=== PATIENT | female | born 1990 | race Caucasian/White ===

== ENCOUNTER 2020-07-04 09:04 | Outpatient (CLI) | payer OTHER ==
[~2020-07-04] VITALS: Ht 160 cm; Wt 81.8 kg
[2020-07-04] MEDS ORDERED: D5W/LR 1,000 ML IV ONE (12:00)
[2020-07-05] MEDS ORDERED: PRENTAB9 PO (18:48)
--- NOTE | 2020-08-18 13:41 | HPE ---
DATE OF SERVICE: 07/04/2020 HISTORY OF PRESENT ILLNESS: This patient is a 29-year-old 2, para 1, LMP 10/19/19, EDC 07/25/2020, is here at 37 weeks with contractions, every 4 minutes apart, moderate intensity. She is booked for elective primary section because of previous fourth degree tear with abscess formation. RISK FACTORS: She had a fourth degree tear with abscess formations, has gallstones, has anxiety and depression, and had lead exposure. PAST HISTORY: In 2018 at 40 and 2 weeks, spontaneous delivery, fourth degree tear with abscess, 8 pounds, 10 ounces. LABORATORY: O positive, HIV negative, hepatitis negative, RPR negative, rubella immune, varicella immune, Pap normal, urine negative. Gonorrhea and chlamydia are negative. One hour glucose is 102. GBS is negative. PHYSICAL EXAMINATION: She is having contractions 4 minutes apart, moderate in intensity. She is bothered by them. No show or bleeding. Symphysis-fundal height is 38. Vertex presenting. Four quadrant bowel sounds are noted. Category I strip and documented contractions. Cervical exam is 2 cm, soft, posterior, 50% to 60% effaced, -3 stations. Blood pressure is 129/75, respirations 18, pulse 113, temperature 97.3. PLAN: Our plan is to hydrate the patient. She has had nothing to eat or drink for the last 24 hours. Reassess her in two hours time. DARIEN
== END 2020-07-04 13:24 | disposition home or self-care (01) ==
LOC: M LDO 09:04
PROVIDERS: ATTEND Obstetrics & Gynecology
DX: O47.1 False labor at or after 37 completed weeks of gestation (principal); Z3A.37 37 weeks gestation of pregnancy
CPT/HCPCS: 59025; 96360; G0378; G0463

== ENCOUNTER 2020-07-05 18:35 | Inpatient (IN) | payer OTHER ==
[~2020-07-05] VITALS: Ht 160 cm; Wt 84.7 kg
[2020-07-05] MEDS ORDERED: PRENTAB9 PO (18:48)
[2020-07-05 18:50] VITALS: BP 122/82
[2020-07-05 20:20] VITALS: BP 114/59
[2020-07-05] MEDS ORDERED: ceFAZolin SOD 1 GM in D5W MINI-BAG PLUS 50 ML IV ONE (20:45)
[2020-07-05] MEDS ORDERED: AZITHROMYCIN INJ 500 MG, VIAL MATE ADAPTER 1 EACH in D5W 250 ML IV ONE (20:45)
[2020-07-05] MEDS ORDERED: BICITRA 30ML SOLN UDC PO ONE (20:45)
[2020-07-05] MEDS ORDERED: LR 1,000 ML IV SCH (20:45)
[2020-07-05] MEDS ORDERED: LACTATED RINGER'S 1000 ML IV STA (20:45)
[2020-07-05 20:47] LABS: HEMATOCRIT 37.4 % (36.0-47.0); HEMOGLOBIN 13.2 g/dl (12.0-15.5); MEAN CORPUSCULAR HEMOGLOBIN 31.5 pg (27.0-33.0); MEAN CORPUSCULAR HGB CONC 35.3 g/dl (32.0-36.5); MEAN CORPUSCULAR VOLUME 89.3 fl (80.0-96.0); PLATELET COUNT, AUTOMATED 263 10^3/uL (150-450); RED BLOOD COUNT 4.19 10^6/uL (4.00-5.40); WHITE BLOOD COUNT 11.3 10^3/uL (4.0-10.0)
--- NOTE | 2020-07-05 21:03 | HPEPDOC ---
Obstetrical History & Physical General Date of Admission Jul 05, 2020 at 19:43 History of Present Illness Patient is a 29yo at 37.1wks by LMP c/w 9wk US. Past 2hours with worsening of contractions every 4-6min. No LOF. No VB. No headaches or visual changes. +FM. Chief Complaint: Contractions, term Information Provided By: Patient : 2 Term: 1 Care Care: Good Care Dating Final EDC: Jul 25, 2020 Final EDC by: LMP Antepartum Course Height (inches): 63 Pre- weight (lbs.): 155 Admission Weight (lbs.): 182 Change in Weight (lbs.): 27 Past Medical History Past Obstetrical History : Past Obstetrical History: Multigravida Type of Delivery: Spontaneous Vaginal Del. 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 Past Medical History Medical History FI, ED, anxiety/depression, colitis, gallstones Surgical History: Other (colonoscopy, perineal repair x2) Family History Significant Family History: No pertinent family hx Social History Marital Status: Family situation: Spouse/partner home Psychosocial History: Anxiety, Depression * Smoker: non-smoker Alcohol: Denies Drugs: denies Abuse Violence Screening Have you been hit/kicked/slapp: No Have you been sexually assault: No Imunizations Tdap status: current Influenza Status: current Allergies Coded Allergies: No Known Allergies (Unverified , 07/05/20) Medications Scheduled No.137/Iron/Folic Acd ( Vitamin Tablet) 1 Each Tablet, 1 TAB PO DAILY Physical Examination Physical Examination GENERAL: Alert and oriented times three. BREAST: . ABDOMEN: Gravid and non-tender to touch. FETUS: Is vertex (VTX) by sterile vaginal examination (SVE). HEART RATE: Regular rate and rhythm. LUNGS: Clear to auscultation (CTA). EXTREMITIES: No edema. Vital Signs/I&O Vital Signs Date Time Temp Pulse Resp B/P (MAP) Pulse Ox O2 Delivery O2 Flow Rate FiO2 07/05/20 20:20 87 114/59 (77) 07/05/20 18:50 98.2 Laboratory Data 24H LABS Laboratory Tests 2 07/05/20 19:54: Nucleated Red Blood Cells % (auto) 0.0 07/05/20 20:14: Serology Scanned Report Hepatitis B Testing CBC/BMP Laboratory Tests 07/05/20 19:54 Pertinent Laboratoy Data Blood Type: O+ RBC Antibody Screen: Negative HIV: Negative Hepatitis B: Negative Rapid Plasma Reagin: Nonreactive Rubella: Immune Varicella: Immune Chlamydia/Gonorrhea: Negative Group B Streptococcus: Negative Glucose Tolerance Test: 102 Steroid Therapy Steroid Therapy: No Vaginal Examination Dilation: 4 cm Effacement: 80% Station: -3 Presentation: Cephalic presentation Assessment Heart Rate (FHR): 120 Variability: Moderate Accelerations: Present Decelerations: None Tocometer Contractions: Yes Frequency: regular, every 3-7 min. Multi-drug resistant Organism: No history of MDRO Assessment/Plan Assessment Patient is a 29yo at 37.1wks by LMP c/w 9wk US. Admit for labor and plan for PLTCS as patient desires. Pain management per anesthesia. I discussed risks and benefits of vs section with patient including risk of pelvic floor dysfunction and recurrence OASIS. Currently, fetus is reassuring. Plan Admit and orient. Shoder Filler and consent. Diet: NPO, last full meal 1830. Group B Streptococcus (GBS) negative. Labs and intravenous (IV) per unit protocol. Lactated Ringers (LR): Bolus 1000 mL, then at 125 mL/hr. C-S and inform anesthesia. Ancef and azithro prophylaxis. Denia Harmon MD Jul 05, 2020 21:03
[2020-07-05] MEDS ORDERED: METOCLOPRAMIDE INJ 10MG/2ML VIAL (J2765 PER 1) IV PRN ×2 (21:45→23:15)
[2020-07-05] MEDS ORDERED: diphenhydrAMINE 50MG/ML VIAL (J1200) IV PRN (21:45)
[2020-07-05] MEDS ORDERED: NALBUPHINE HCL 10 MG/ML AMP (J2300) IV PRN (21:45)
[2020-07-05] MEDS ORDERED: ONDANSETRON 4MG/2ML VIAL IV PRN ×3 (21:45→23:15)
[2020-07-05] MEDS ORDERED: NALOXONE INJ 0.4MG/1ML VIAL (J2310 PER 1MG) IV PRN ×2 (21:45)
[2020-07-05] MEDS ORDERED: MORPHINE PRES-FREE INJ 10 MG/10 ML VIAL (J2274) As Ordered ONE (21:46)
[2020-07-05] MEDS ORDERED: PHENYLephrine HCL 500 MCG/5 ML (100MCG/ML) SYRINGE (J2370) As Ordered ONE (21:51)
[2020-07-05] MEDS ORDERED: ePHEDrine SULFATE 25 MG/5 ML(5MG/ML) SYRINGE As Ordered ONE (21:51)
[2020-07-05] MEDS ORDERED: ONDANSETRON 4MG/2ML VIAL As Ordered ONE (21:52)
[2020-07-05] MEDS ORDERED: OXYTOCIN INJ 10 UNITS/ML VIAL (J2590) As Ordered ONE (21:52)
[2020-07-05] MEDS ORDERED: SEVOFLURANE INHAL SOLN 250 ML BTL As Ordered ONE (21:52)
[2020-07-05] MEDS ORDERED: KETOROLAC 60MG 2ML VIAL As Ordered ONE (22:00)
[2020-07-05] MEDS ORDERED: fentaNYL 100 MCG/2 ML INJECTION (J3010) As Ordered ONE (22:13)
--- NOTE | 2020-07-05 22:55 | ROOPDOC ---
[facility] Report Of Operation Report of Operation DATE OF PROCEDURE: 07/05/20 PREPROCEDURE DIAGNOSES: 1. Term . 2. H/o 4th degree laceration. 3. Pelvic floor dysfunction. 4. Fecal incontinence POSTPROCEDURE DIAGNOSES: 1. Term . 2. H/o 4th degree laceration. 3. Pelvic floor dysfunction. 4. Fecal incontinence PROCEDURE: PLTCS. SURGEON: Denia Harmon MD PRODUCT SALES REPRESENTATIVE: Christine Fishman MD ANESTHESIA: Spinal. ESTIMATED BLOOD LOSS: Approximately 900 mL. COMPLICATIONS: None. IV Fluids: FINDINGS: Normal uterus, tubes and ovaries. Clear amniotic fluid. Vertex baby boy with no nuchal cord 9/9 with weight of 3770gm 8lb5oz. DESCRIPTION OF PROCEDURE: Patient was brought back to the operating room. The spinal was placed and confirmed to be adequate. She was then laid in a supine position with a slight leftward tilt and draped and prepped in the usual sterile fashion. Confirmation of good anesthesia was performed and time out was done. Pfannensteil incision location was marked approximately 2cm above the pubic bone and approximately 9cm in length. The incision was made with a 12 blade scalpel and then carried through the subcutaneous tissue just barely piercing the midline of the fascia w ith electrocautery. The left side of the fascia was bluntly dissected free from the rectus muscle and elevated with a Candis clamp and then transected with electrocautery. This was repeated on the right side. The superior fascia was grasped with two kochers and the rectus muscle was dissected free from the fascia with electrocautery. The two kochers were then brought to the inferior edges of the fascia to elevate and dissect the superior portion of the pyramidalis muscle from the fascia. The rectus muscle was divided along the midline and the peritoneum was entered bluntly superiorly. Retractors were placed. The uterovesical peritoneum was identified and grasped approximately 4cm superior to the bladder and incised with Metzenbaum scissors. The incision was c arried bilaterally with the scissors and then inferiorly bluntly. The retractor was replaced to include the bladder flap. Uterine incision was then placed with a different 12 blade scalpel in the lower uterine segment transversing approximately 2cm. The serosa and myometrium were gently cut into. The layers were elevated with 2 Allis clamps and then a Candis clamp was used to bluntly spread through the remainder of the uterus to avoid injuring the fetus. Amniotic sac was pierced and was clear. Fetus was in a OA position without a nuchal cord. I placed my hand into the uterus and flexed the head to allow delivery and then the body was delivered without difficulty. Mouth and nose were bulb suction. Cord was clamp x2 and cut and baby was handed to awaiting nurse with the above findings. The placenta was grasped and removed intact and normal. Uterus was not exteriorized and wrapped in a damp lap and the inside was cleared of all clots and debris with a damp lap. The lower uterine incision edges were identified and grasped with T clamps. The uterine incision was closed with #1 Chromic in a running locked fashion. There was bleeding from an extension on the left lateral edge into the uterine artery in which an Pooja stitch was placed with 0 chromic. A second layer was performed with #1 Chromic in a horizontal mattress fashion for imbrication. Good hemostasis was noted. Adnexa and pos terior uterus was palpated. The posterior cul de sac was irrigated and cleared of all clots and debris. Both pericolic gutters were checked and cleared of all clots and debris. The incision was rechecked and found to be hemostatic. The retractors were removed. Three Candis clamps were placed on the peritoneum for elevation and it was closed with 3-0 chromic, which was also used to reapproximate the lower edges of the rectus muscle. The rectus muscle was inspected and found to be hemostatic. The fascia was closed with 0 vicryl in a running unlocked fashion. The fascia was then checked to ensure there was no areas of looseness or defects, which there was not. The subcutaneous layer was irrigated and found to be hemostatic. The epidermis was reapproximated with subcutaneous stictches of 3-0 monocryl and completed with Dermabond. A pressure dressing was then placed. The uterus was then expressed. The count for lap, needles, and instruments was correct times 3. The patient was in stable condition to the PACU. Denia Harmon MD Jul 05, 2020 21:16
[2020-07-05] MEDS: LR 1,000 ML IV SCH (22:59)
[2020-07-05] MEDS ORDERED: OXYTOCIN DRIP 30 UNITS in IV 1 EA IV SCH (22:59)
[2020-07-05] MEDS ORDERED: SIMETHICONE 80 MG CHEW TAB PO PRN (23:00)
[2020-07-05] MEDS ORDERED: HYDROmorphone 2 MG TAB PO PRN (23:00)
[2020-07-05] MEDS ORDERED: MOM 30ML SUSPENSION UDC PO PRN (23:00)
[2020-07-05] MEDS ORDERED: diphenhydrAMINE 25MG CAP PO PRN (23:00)
[2020-07-05] MEDS ORDERED: ANUSOL HC CREAM 30GM TOP PRN (23:00)
[2020-07-05] MEDS ORDERED: CALCIUM CARBONATE 500 MG CHEW U/D PO PRN (23:00)
[2020-07-05] MEDS ORDERED: METHYLERGONOVINE MALEATE 0.2 MG TAB PO PRN (23:00)
[2020-07-05] MEDS ORDERED: RHOGAM 300 MCG (1500 IU) INJ (J2790) IM SCH (23:00)
[2020-07-05] MEDS ORDERED: MEASLES,MUMPS,RUBELLA VACCINE INJ (MMR-II) (90707) SC SCH (23:00)
[2020-07-05] MEDS ORDERED: MEPERIDINE INJ 25 MG/ML VIAL (J2175) IV PRN (23:15)
[2020-07-05] MEDS ORDERED: fentaNYL 100 MCG/2 ML INJECTION (J3010) IV PRN (23:15)
[2020-07-05] MEDS ORDERED: PERCOCET 5MG/325MG TAB PO PRN (23:15)
[2020-07-05] MEDS ORDERED: KETOROLAC 30 MG/ML 1ML VIAL IV PRN (23:15)
[2020-07-06] VITALS (10 sets, daily range): BP systolic 103–115; BP diastolic 58–72
[2020-07-06] MEDS: KETOROLAC 30 MG/ML 1ML VIAL IV SCH ×3 (05:57→17:03)
[2020-07-06] MEDS: LR 1,000 ML IV SCH (06:59)
[2020-07-06] MEDS: PRENATAL VITAMINS CHEWABLE TABLET PO SCH (08:30)
[2020-07-06] MEDS: ACETAMINOPHEN 500 MG TAB PO SCH ×4 (08:30→21:48)
[2020-07-06] MEDS: DOCUSATE SODIUM 100 MG CAP PO SCH ×2 (08:30→21:48)
[2020-07-06 10:03] LABS: HEMATOCRIT 33.5 % (36.0-47.0); MEAN CORPUSCULAR HEMOGLOBIN 30.8 pg (27.0-33.0); MEAN CORPUSCULAR HGB CONC 33.4 g/dl (32.0-36.5); PLATELET COUNT, AUTOMATED 212 10^3/uL (150-450); RED BLOOD COUNT 3.64 10^6/uL (4.00-5.40); WHITE BLOOD COUNT 11.2 10^3/uL (4.0-10.0)
[2020-07-06 10:21] LABS: HEMOGLOBIN 11.2 g/dl (12.0-15.5)
--- NOTE | 2020-07-06 13:12 | IPNPDOC ---
Progress Note Date of Service: Jul 06, 2020 Day#: 1 Progress Note SUBJECT: Patient is a 29-year-old 2 now Para 2 status post uncomplicated PLTCS for OASIS complications, doing well postop day # 1. She has not been ambulating, and awaiting catheter removal to try voiding, but is tolerating regular diet. Breast feeding without issue. Reports lochia is less than normal period. Patient is ambulating well. Reports some cramping with . Has controlled pain. OBJECTIVE: VITAL SIGNS: Within normal limits, afebrile. GENERAL: No acute distress HEENT: MMM BREAST: Nontender, no erythema CARDIOVASCULAR EXAMINATION: RRR RESPIRATORY EXAMINATION: Bilaterally clear ABDOMINAL EXAMINATION: Soft, appropriate tenderness, nondistended, fundus -3 PERINEUM: Intact, minimal lochia EXTREMITIES: no edema, nontender WOUND: Dressing clean and intact ASSESSMENT: Patient is a 29-year-old 2 now Para 2 status post uncomplicated PLTCS for OASIS complications, doing well postop day # 1 around 2100. Vitals within normal limits, afebrile, hemodynamically stable with no evidence of infection. PLAN: 1. Routine advances. 2. Tylenol and Motrin and percocet for pain. 3. Encourage breast feeding and ambulation. VS, I&O, 24H, Fishbone Vital Signs/I&O Vital Signs Date Time Temp Pulse Resp B/P (MAP) Pulse Ox O2 Delivery O2 Flow Rate FiO2 07/06/20 06:00 97.6 56 18 109/63 (78) 07/06/20 04:30 96 Room Air I&O- Last 24 Hours up to 6 AM 07/06/20 05:59 Intake Total 100 ml Output Total 2325 ml Balance -2225 ml Laboratory Data 24H LABS Laboratory Tests 2 07/05/20 19:54: Nucleated Red Blood Cells % (auto) 0.0 07/05/20 20:14: Serology Scanned Report Hepatitis B Testing CBC/BMP Laboratory Tests 07/05/20 19:54 Denia Harmon MD Jul 06, 2020 07:47
[2020-07-07] VITALS (7 sets, daily range): BP systolic 104–115; BP diastolic 56–78
[2020-07-07] MEDS: IBUPROFEN 800 MG TAB PO SCH ×3 (01:38→18:13)
--- NOTE | 2020-07-07 04:26 | IPNPDOC ---
Progress Note Date of Service: Jul 07, 2020 Day#: 2 Progress Note SUBJECT: Patient is a 29-year-old 2 now Para 2 status post uncomplicated PLTCS for OASIS complications, doing well postop day # 2. She has been ambulating well, and voiding well, and tolerating regular diet. Breast feeding without issue. Reports lochia is less than normal period. Reports some cramping with . Has decreased pain. OBJECTIVE: VITAL SIGNS: Within normal limits, afebrile. GENERAL: No acute distress HEENT: MMM BREAST: Nontender, no erythema CARDIOVASCULAR EXAMINATION: RRR RESPIRATORY EXAMINATION: Bilaterally clear ABDOMINAL EXAMINATION: Soft, appropriate tenderness, nondistended, fundus -3 PERINEUM: Intact, minimal lochia EXTREMITIES: no edema, nontender WOUND: Dressing clean and intact but replaced yesterday ASSESSMENT: Patient is a 29-year-old 2 now Para 2 status post uncomplicated PLTCS for OASIS complications, doing well postop day # 2 around 2100. Vitals within normal limits, afebrile, hemodynamically stable with no evidence of infection. PLAN: 1. Continue care. 2. Tylenol and Motrin and percocet for pain. 3. Encourage breast feeding and ambulation. VS, I&O, 24H, Fishbone Vital Signs/I&O Vital Signs Date Time Temp Pulse Resp B/P (MAP) Pulse Ox O2 Delivery O2 Flow Rate FiO2 07/06/20 10:22 97.8 66 16 103/65 (78) 07/06/20 04:30 96 Room Air I&O- Last 24 Hours up to 6 AM 07/06/20 06:00 Intake Total 100 ml Output Total 2325 ml Balance -2225 ml Laboratory Data 24H LABS Laboratory Tests 2 07/05/20 19:54: Nucleated Red Blood Cells % (auto) 0.0 07/05/20 20:14: Serology Scanned Report Hepatitis B Testing 07/06/20 09:34: Nucleated Red Blood Cells % (auto) 0.0 CBC/BMP Laboratory Tests 07/05/20 19:54 07/06/20 09:34 Denia Harmon MD Jul 06, 2020 13:13
[2020-07-07] MEDS: DOCUSATE SODIUM 100 MG CAP PO SCH ×2 (08:36→21:36)
[2020-07-07] MEDS: PRENATAL VITAMINS CHEWABLE TABLET PO SCH (08:36)
[2020-07-07] MEDS: ACETAMINOPHEN 500 MG TAB PO SCH ×4 (08:37→21:36)
[2020-07-08] MEDS: IBUPROFEN 800 MG TAB PO SCH ×2 (01:38→09:50)
[2020-07-08 06:00] VITALS: BP 109/68
--- NOTE | 2020-07-08 06:27 | OBDS ---
[facility] Obstetrical Discharge Sum. Obstetrical Discharge Summary Date: Jul 08, 2020 : 2 Term: 2 Livin VDRL: Non-Reactive Rh: Positive Rubella: Immune Labor Active Delivery PLTCS Sex: Male Weight: grams (3770) Anesthesia: Regional Anesthesia A/P, Post Course List any complications Admission diagnosis: Active Labor, Term , OASIS dysfunction Discharge diagnosis: Active Labor, Term , OASIS dysfunction Condition at Discharge: Stable Discharge Instructions: Home Activity: Ad mirian with pelvic rest Diet: Regular Medications: As received during 36wk visit Follow-up: 2wks Other: None HOSPITAL COURSE: Patient was admitted for active labor. She had an uncomplicated PLTCS for h/o 4th degree laceration. Her course was uncomplicated with normal lochia, pain and spontaneous voiding. She ambulated and ate without difficulty. Denia Harmon MD Jul 05, 2020 22:58 TOBI NEFF DO Jul 08, 2020 06:27
--- NOTE | 2020-07-08 06:30 | IPNPDOC ---
Progress Note Date of Service: Jul 08, 2020 Day#: 3 Progress Note SUBJECT: 29-year-old status post PLTCS for h/o 4th degree laceration after presenting in active labor at 37wks doing well post-op day #3. She has been ambulating, voiding spontaneously without issue and tolerating regular diet. She reports is going well. Reports lochia is decreasing. Patient is ambulating well. Reports pain is controlled with pain meds. Voiding without difficulty. +Flatus. OBJECTIVE: VITAL SIGNS: Within normal limits, afebrile. Alert and oriented times three. RESP: no exaggerated respiratory effort appreciated CARDS: well-perfused Abdomen: Fundus firm at U-1. Soft, NTTP. Incision: silvadene dressing in place, c/d/i : small lochia, mild edema Ext: +1/4 pitting pedal edema, no calf tenderness ASSESSMENT: 29-year-old status post PLTCS doing well on day 3. Vitals within normal limits, afebrile, hemodynamically stable with no evidence of infection. PLAN: 1. Discharge to home today. 2. 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 3. Encourage breast feeding, support PRN. 4. Encourage ambulation OOB as tolerated, regular diet as tolerated 5. Routine PP visit in 6 weeks in clinic. 6. Discussed return precautions at length. VS, I&O, 24H, Fishbone Vital Signs/I&O Vital Signs Date Time Temp Pulse Resp B/P (MAP) Pulse Ox O2 Delivery O2 Flow Rate FiO2 07/07/20 22:00 97.3 82 18 105/58 (74) 95 Room Air TOBI NEFF DO Jul 08, 2020 06:30
[2020-07-08 07:55] VITALS: BP 109/68
[2020-07-08] MEDS: DOCUSATE SODIUM 100 MG CAP PO SCH (09:47)
[2020-07-08] MEDS: PRENATAL VITAMINS CHEWABLE TABLET PO SCH (09:47)
[2020-07-08] MEDS: ACETAMINOPHEN 500 MG TAB PO SCH ×2 (09:50→12:56)
--- NOTE | 2020-08-23 07:18 | IPN ---
DATE: 07/06/2020 This patient and requested circumcision of their male . After discussing risks and benefits of the circumcision, the medical and nonmedical indications, the penile block, and aftercare, expressed understanding of penile block and aftercare, signed a consent form. All questions were answered. A 20-minute discussion. We await clearance by the special effects designer. DARIEN
== END 2020-07-08 15:05 | disposition home or self-care (01) | DRG 773 ==
LOC: M LDO 18:35 → M LDI 19:43 → M OBS 07-06 01:20
PROVIDERS: ADMIT Obstetrics & Gynecology; ATTEND Obstetrics & Gynecology
PROC: 10D00Z1 Extraction of Products of Conception, Low, Open Approach (ICD-10-PCS; principal; 2020-07-05 21:21)
DX: O99.89 Other specified diseases and conditions complicating pregnancy, childbirth and the puerperium (principal); N94.89 Other specified conditions associated with female genital organs and menstrual cycle; R15.9 Full incontinence of feces; Z3A.37 37 weeks gestation of pregnancy; Z37.0 Single live birth; O75.82 Onset (spontaneous) of labor after 37 completed weeks of gestation but before 39 completed weeks gestation, with delivery by (planned) cesarean section; O26.893 Other specified pregnancy related conditions, third trimester

== ENCOUNTER → 2020-07-15 | Outpatient (REF) | payer SELFPAY ==
[~2020-07-15] MED LIST: PRENTAB9 PO
== END ==
LOC: M SFHCLERA 17:05
PROVIDERS: ATTEND Physician Assistant
DX: R30.0 Dysuria (principal); N89.8 Other specified noninflammatory disorders of vagina